=== PATIENT | male | born 1970 | race Caucasian/White ===

== ENCOUNTER 2017-02-03 13:47 | Observation (INO) ==
--- NOTE | 2017-02-03 14:55 | Emergency Department Note ---
Disposition Clinical Impression: UGI bleed Abdominal pain Qualifiers: Abdominal location: epigastric Qualified Code(s): R10.13 - Epigastric pain Disposition: Admitted As Inpatient Condition: Good Time of Disposition: 17:39 Abdominal Pain HPI - General Chief Complaint: ED Abdominal Pain Stated Complaint: Poss GI bleed Time Seen by Provider: 02/03/17 14:26 Source: patient Mode of arrival: ambulatory Limitations: no limitations Nursing Notes Reviewed: Yes Vital Signs Reviewed: Yes - History of Present Illness HPI Narrative: She presents to the emergency department with complaints of abdominal pain and emesis of coffee-ground material. He states that he got up in the night and had emesis at that time noticed it was dark coffee ground and in appearance. He states then he went back to bed was having some abdominal pain but not very much, this morning however he has had an additional 2 episodes of coffee-ground type emesis along with some black tarry stools. He family had has been on a prednisone Dosepak because of the left shoulder pain he has got small tear in his left shoulder is been treated for that. He has no other current history of GI bleed. He has had Li's esophageal otitis in the past but that was approximately 10 years ago. No history of bright red bleeding he rectally or emesis. He reports no fever he does complain of abdominal pain very tender mainly at the midepigastric soreness primary tenderness as. He is alert and oriented appears to be in no acute distress at this time. Onset (ago): hour(s) (12) Consistency: constant, Worsening Pain Severity: moderate Pain Scale: 5 Quality: cramping, sharp Radiation: LUQ, RUQ, epigastric Migration to: no migration Improves with: nothing Worsens with: nothing Associated symptoms: Reports: nausea, vomiting, diarrhea, hematemesis, hematochezia Treatments prior to arrival: none - Related Data Home Medications Medication Instructions Recorded Confirmed Cold Medication-Otc 06/09/15 06/09/15 Previous Rx's Medication Instructions Recorded Albuterol Sulfate [Albuterol 1 - 2 puff IH Q4HR PRN #1 06/09/15 Inhaler] [email or web address] Azithromycin [Zithromax] 250 mg PO DAILY #6 tablet 06/09/15 Promethazine/Codeine 5 ml PO TID #120 syrup 10/22/15 [Phenergan/Codeine] Azithromycin [Azithromycin 6-Tab 250 mg PO DAILY #6 tab 09/08/15 Pack] Joao/Poly/HC *EAR* SUSP 4 drop LEFT EAR QID #10 ml 09/08/15 [Cortisporin *EAR* SUSP] Allergies Allergy/AdvReac Type Severity Reaction Status Date / Time latex Allergy Hives Verified 06/09/15 11:56 Constitutional: Denies: fever, chills, weakness, weight change Eyes: Denies: eye pain, eye discharge, vision change ENT ED: Denies: ear pain, throat pain, dental pain, hearing loss, epistaxis, congestion, dysphagia Cardiovascular: Denies: chest pain, palpitations, dyspnea on exertion, edema, syncope Respiratory: Denies: cough, dyspnea, wheezes, hemoptysis, stridor Gastrointestinal: Reports: abdominal pain, nausea, vomiting, hematemesis, hematochezia Abdominal Pain PMH - Past Medical History Medical history: Reports: asthma Male Surgical History: Reports: appendectomy, orthopedic, other Psychiatric history: Reports: no psych history - Social History Smoking status: Unknown if ever smoked Alcohol use: Reports: none, occasionally Drug use: Reports: none Physical Exam - General Limitations: no limitations General appearance: alert, anxious - Head Head exam: atraumatic, normocephalic, normal inspection - Eye Eye exam: Present: normal appearance, PERRL, EOMI - ENT ENT exam: normal exam, normal oropharynx, mucous membranes moist - Neck Neck exam: Present: normal inspection, full ROM, trachea midline - Chest Chest inspection: Present: normal inspection, symmetric chest wall rise - Respiratory Respiratory exam: Present: normal lung sounds bilaterally - Cardiovascular Cardiovascular exam: Present: regular rate, normal rhythm, normal heart sounds - Abdominal Exam Abdominal exam: Present: tenderness, guarding, diminished bowel sounds Abdominal tenderness: Present: RUQ, LUQ, epigastrium - Extremities Exam Extremities exam: Present: normal inspection, full ROM. Absent: tenderness, pedal edema - Expanded Upper Extremity Exam Shoulder exam: Present: tenderness (left ). Absent: swelling, abrasion, ecchymosis, deformity, crepitus Arm exam: Present: normal inspection, full ROM Elbow exam: Present: normal inspection, full ROM Forearm/Wrist exam: Present: normal inspection, full ROM Hand exam: Present: normal inspection, full ROM Neuromotor exam: Normal: wrist extension, thumb opposition, thumb IP flexion, fingers 2-5 abduction Neurosensory exam: Normal: radial nerve, ulnar nerve, 2-point discrimination Hand tendon exam: Normal: flexor digitorum profundus (location), flexor digitorum superficialis (location), extensor tendon (location) Vascular exam: Normal: capillary refill, radial pulse - Expanded Lower Extremity Exam Hip/Pelvis exam: Present: normal inspection, full ROM Upper leg exam: Present: normal inspection, full ROM Knee exam: Present: normal inspection, full ROM Lower leg exam: Present: normal inspection, full ROM Ankle exam: Present: normal inspection, full ROM Foot/toe exam: Present: normal inspection, full ROM Neurovascular/Tendon exam: Absent: motor deficit, sensory deficit, tendon deficit - Back Exam Back exam: Present: normal inspection, full ROM. Absent: tenderness - Neurological Exam Neurological exam: Present: alert, oriented X3 - Psychiatric Psychiatric exam: Present: normal affect, normal mood - Skin Skin exam: Present: warm, dry, intact, normal color Course - Reevaluation(s) Reevaluation #1: discussed all results with patient and his . Will admit him to the hospital. He is in agreement. Time: 16:30 - Consultations Consultation #1: spoke with Dania Fischer the hospitalist who is admitting she accepted the patient for admission to the hospital. Time: 17:37 Vital Signs Temperature 98.3 F 02/03/17 13:48 Pulse Rate 105 02/03/17 13:48 Respiratory Rate 20 02/03/17 13:48 Blood Pressure 128/75 02/03/17 13:48 O2 Sat by Pulse Oximetry 98 02/03/17 13:48 Temperature 98.3 F 02/03/17 13:48 Pulse Rate 96 02/03/17 16:36 Respiratory Rate 20 02/03/17 16:36 Blood Pressure 116/69 02/03/17 16:36 O2 Sat by Pulse Oximetry 98 02/03/17 16:36 Oxygen Delivery Oxygen Delivery Room Air Abdominal Pain - Lab Data Result diagrams: 02/03/17 16:09 02/03/17 16:09 Lab Results 02/03/17 02/03/17 02/03/17 Range/Units 16:09 16:09 16:37 WBC 19.1 H (4.3-11.1) K/mcL RBC 5.04 (4.19-5.50) M/mcL Hgb 15.0 (12.9-16.9) g/dL Hct 43.8 (37.5-50.1) % MCV 86.9 (83.0-100.0) fL MCH 29.8 (28.0-33.3) pg MCHC 34.2 (31.6-35.5) g/dL RDW 13.2 (11.5-14.5) % Plt Count 226 (140-400) K/mcL MPV 9.7 (9.4-12.4) fL Immature Gran % 0.9 (0-4) % Seg Neutrophils % 72.8 % Lymphocytes % 18.1 % Monocytes % 8.0 % Eosinophils % 0.1 % Basophils % 0.1 % Neutrophils # 13.9 H (1.6-8.9) K/mcL Lymphocytes # 3.5 (0.6-4.6) K/mcL Monocytes # 1.5 H (0.0-1.3) K/mcL Eosinophils # 0.0 (0.0-0.6) K/mcL Basophils # 0.0 (0.0-0.2) K/mcL Sodium 140 (136-145) mEq/L Potassium 4.3 (3.5-4.5) mEq/L Chloride 103 (98-109) mEq/L Carbon Dioxide 28 (19-29) mEq/L BUN 43 H (8-26) mg/dL Creatinine 1.27 H (0.72-1.25) mg/dL Est GFR ( Amer) > 60 (> 60) Est GFR (Non-Af Amer) > 60 (> 60) BUN/Creatinine Ratio 34 H (6-26) Glucose 108 H (70-99) mg/dL Calculated Osmolality 301 H (280-300) Calcium 9.2 (8.6-10.8) mg/dL Total Bilirubin 0.9 (0.2-1.2) mg/dL Direct Bilirubin 0.3 (0.0-0.5) mg/dL Indirect Bilirubin 0.6 (0.0-1.2) mg/dL AST 21 (5-34) Units/L ALT 35 (0-55) Units/L Alkaline Phosphatase 43 (38-126) Units/L Serum Total Protein 6.6 (6.0-8.3) g/dL Albumin 3.7 (3.5-5.0) g/dL Globulin 2.9 (2.4-3.5) g/dL Albumin/Globulin Ratio 1.3 (1.1-2.2) Amylase 35 (25-125) Units/L Lipase 16 (8-78) Units/L Stool Occult Blood Positive A (Negative) Attestation Statement - Attestation Attestation: For this encounter, I have reviewed the [employer] REPAIRER or PA documentation, treatment plan, and medical decision making; and I have had face to face time with this patient. 46-year-old who developed coffee-ground emesis last day or so and then developed dark tarry stools. Physical examination he's got some mild tenderness across the abdomen without guarding or rebound. Stool guaiac was positive. He will be admitted for further evaluation treatment.
[2017-02-03] MEDS ORDERED: *HR* Promethazine 25 MG/ML VIAL IVP ONE (14:58)
[2017-02-03] MEDS ORDERED: Ketorolac 30 MG/ML VIAL IVP ONE (14:58)
[2017-02-03] MEDS ORDERED: 0.9 % Sodium Chloride 1,000 ML IVC ONE (14:58)
[2017-02-03 16:15] LABS: Basophils % 0.1 %; Eosinophils % 0.1 %; Hematocrit 43.8 % (37.5-50.1); Immature Granulocytes % 0.9 % (0-4); Lymphocytes # 3.5 K/mcL (0.6-4.6); Lymphocytes % 18.1 %; Mean Corpuscular HGB Conc 34.2 g/dL (31.6-35.5); Mean Corpuscular Hemoglobin 29.8 pg (28.0-33.3); Mean Corpuscular Volume 86.9 fL (83.0-100.0); Mean Platelet Volume 9.7 fL (9.4-12.4); Monocytes # 1.5 K/mcL (0.0-1.3); Neutrophils # 13.9 K/mcL (1.6-8.9); Platelet Count 226 K/mcL (140-400); Red Blood Count 5.04 M/mcL (4.19-5.50); Red Cell Distribution Width 13.2 % (11.5-14.5); Segmented Neutrophils % 72.8 %
[2017-02-03 16:46] LABS: Alanine Aminotransferase 35 Units/L (0-55); Albumin 3.7 g/dL (3.5-5.0); Albumin/Globulin Ratio 1.3 (1.1-2.2); Alkaline Phosphatase 43 Units/L (38-126); Amylase 35 Units/L (25-125); Aspartate Amino Transferase 21 Units/L (5-34); BUN/Creatinine Ratio 34 (6-26); Bilirubin,Direct 0.3 mg/dL (0.0-0.5); Bilirubin,Indirect 0.6 mg/dL (0.0-1.2); Bilirubin,Total 0.9 mg/dL (0.2-1.2); Blood Urea Nitrogen 43 mg/dL (8-26); Calcium 9.2 mg/dL (8.6-10.8); Carbon Dioxide 28 mEq/L (19-29); Chloride 103 mEq/L (98-109); Globulin 2.9 g/dL (2.4-3.5); Glucose 108 mg/dL (70-99); Lipase 16 Units/L (8-78); Osmolality,Calculated 301 (280-300); Potassium 4.3 mEq/L (3.5-4.5); Sodium 140 mEq/L (136-145); Total Protein 6.6 g/dL (6.0-8.3); eGFR For African Americans > 60 (> 60); eGFR For Non-African Americans > 60 (> 60)
[2017-02-03] MEDS ORDERED: Pantoprazole 40 MG VIAL IVP ONE (19:53)
[2017-02-03 21:18] LABS: Bilirubin,Urine Negative (Negative); Blood,Urine Small (Negative); Clarity,Urine Clear (Clear); Color,Urine Dark Yellow (Yellow); Glucose,Urine (UA) Normal (Normal); Ketones,Urine Trace mg/dL (Negative); Leukocyte Esterase,Urine Negative (Negative); Nitrite,Urine Negative (Negative); PH,Urine 5.5 pH Units (5.0-8.0); Protein,Urine Negative (Neg-Trace); Specific Gravity,Urine > 1.030 (1.010-1.025); Urobilinogen,Urine Normal (Normal)
[2017-02-03 21:20] LABS: Bacteria,Urine None Seen per hpf (None-Few); Hyaline Casts,Urine None Seen per lpf (None-Few); Squamous Epithelial Cell,Urine Few per lpf (None-Few); WBC,Urine 0-3 per hpf (0-3)
[2017-02-03] MEDS: Pantoprazole 40 MG in 0.9 % Sodium Chloride Mini Bag 100 ML IVC SCH (22:09)
--- NOTE | 2017-02-03 22:39 | Internal Med History&Physical ---
Date of Encounter: 02/03/17 Time of Encounter: 22:35 Assessment and Plan (1) UGI bleed Current visit: Yes Status: Acute Suspected upper G.I. bleed. We will start photonic strip. He will need EGD and so gastroenterology will be consulted. Follow H&H Q6 hours. Initial Hb is 15. He had several dark bowel movements. I will also check stool studies for culture white blood cells, ova and parasites. (2) JEANNIE (acute kidney injury) Current visit: Yes Status: Acute There is no baseline kidney functions. Will hydrate and follow kidney functions in the morning. He denies taking nonsteroidal anti-inflammatory drugs except very rarely. (3) Leukocytosis Current visit: Yes Status: Acute Suspect that this is related to steroids. May also be reactive if he is having G.I. bleeding. 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 Since yesterday night patient had several episodes of coffee ground emesis about 5 episodes. He denies any fresh blood in the vomitus. He has been complaining of epigastric pain and nausea. He also noticed black tarry stools. He has been on prednisone for left shoulder muscle injury. He very rarely takes nonsteroidal anti-inflammatory drugs, last was a month ago. He denies being on any antiplatelet or anticoagulant medications. He has history of good status post Oleg fundoplication. He also has history of Li's esophagus. He has been following up with endoscopy every 6 month Last scope was many years ago. Hemoglobin on arrival to the ER was 15. He denies any fevers or chills. No sick contacts or recent travel. Past Med Surg Social Fam HX - Past Medical History Medical history: asthma Psychiatric history: no psych history - Past Surgical History Surgical History: other (two (2) sinus surgeries) - Social History Smoking Status: Unknown if ever smoked Smokeless Tobacco Status: Yes Alcohol use: none, occasionally Drug use: none Internal Medicine - H&P: Meds Albuterol Sulfate [Albuterol Inhaler] 1 - 2 puff IH Q4HR PRN #1 hfa.aer.ad 10/22 /15 [Rx] Azithromycin [Zithromax] 250 mg PO DAILY #6 tablet 06/09/15 [Rx] Cold Medication-Otc 06/09/15 [History] Promethazine/Codeine [Phenergan/Codeine] 5 ml PO TID #120 syrup 06/09/15 [Rx] Azithromycin [Azithromycin 6-Tab Pack] 250 mg PO DAILY #6 tab 09/08/15 [Rx] Joao/Poly/HC *EAR* SUSP [Cortisporin *EAR* SUSP] 4 drop LEFT EAR QID #10 ml 09/08 [Rx] Allergies latex Allergy (Verified 06/09/15 11:56) Hives All Systems PM: A 10-system review of systems was performed and is negative for pertinent findings except as documented above in the HPI. Review of systems: 10 point review of systems is negative except for HPI - Constitutional Vitals: Temp Pulse Resp BP Pulse Ox 98.1 F 98 14 127/85 97 02/03/17 18:50 02/03/17 18:50 02/03/17 18:50 02/03/17 18:50 02/03/17 18:50 Exam: Gen.: patient is alert oriented times 3 cardiac: normal S1 S2 no additional sounds or murmurs chest: no active wheezing or bronchial breathing abdomen Tenderness in epigastric area lower extremity no swelling. Neuro: no new focal deficits Internal Med - H&P Results - Labs CBC & Chem 7: 02/03/17 16:09 02/03/17 16:09 Labs: Urine 02/03/17 Range/Units 21:14 Urine Color Dark Yellow (Yellow) Urine Clarity Clear (Clear) Urine pH 5.5 (5.0-8.0) pH Units Ur Specific [place] > 1.030 H (1.010-1.025) Urine Protein Negative (Neg-Trace) mg/dL Urine Glucose (UA) Normal (Normal) mg/dL
[2017-02-03] MEDS: 0.9 % Sodium Chloride 1,000 ML IVC SCH (23:20)
[2017-02-04 00:02] LABS: Hematocrit 34.8 % (37.5-50.1)
[2017-02-04] MEDS: Pantoprazole 40 MG in 0.9 % Sodium Chloride Mini Bag 100 ML IVC SCH ×3 (02:46→16:21)
[2017-02-04 05:09] LABS: Basophils # 0.1 K/mcL (0.0-0.2); Basophils % 0.4 %; Eosinophils # 0.2 K/mcL (0.0-0.6); Hematocrit 33.1 % (37.5-50.1); Hemoglobin 11.3 g/dL (12.9-16.9); Immature Granulocytes % 0.7 % (0-4); Lymphocytes # 4.2 K/mcL (0.6-4.6); Lymphocytes % 27.7 %; Mean Corpuscular HGB Conc 34.1 g/dL (31.6-35.5); Mean Corpuscular Hemoglobin 29.7 pg (28.0-33.3); Mean Corpuscular Volume 87.1 fL (83.0-100.0); Mean Platelet Volume 9.9 fL (9.4-12.4); Monocytes % 6.7 %; Neutrophils # 9.6 K/mcL (1.6-8.9); Nucleated Red Blood Cells 0.1 /100 WBC (0); Platelet Count 186 K/mcL (140-400); Red Cell Distribution Width 13.2 % (11.5-14.5); Segmented Neutrophils % 63.5 %
[2017-02-04 05:22] LABS: BUN/Creatinine Ratio 44 (6-26); Blood Urea Nitrogen 50 mg/dL (8-26); Carbon Dioxide 26 mEq/L (19-29); Chloride 107 mEq/L (98-109); Glucose 111 mg/dL (70-99); Magnesium 1.9 mg/dL (1.6-2.6); Osmolality,Calculated 304 (280-300); Potassium 3.7 mEq/L (3.5-4.5); Sodium 140 mEq/L (136-145); eGFR For African Americans > 60 (> 60); eGFR For Non-African Americans > 60 (> 60)
[2017-02-04] MEDS: 0.9 % Sodium Chloride 1,000 ML IVC SCH ×2 (09:21→20:46)
[2017-02-04] MEDS ORDERED: *HR* Midazolam HCl 5 MG/5 ML VIAL IVP ONE (10:43)
[2017-02-04] MEDS ORDERED: *HR* FentaNYL (PF) 100 MCG/2 ML VIAL ONE (10:44)
[2017-02-04] MEDS: *HR* FentaNYL (PF) 100 MCG/2 ML VIAL IVP PRN ×3 (11:00→11:04)
[2017-02-04] MEDS: *HR* Midazolam HCl 5 MG/5 ML VIAL IVP PRN ×3 (11:00→11:04)
[2017-02-04] MEDS ORDERED: Simethicone 40 MG/0.6 ML MLS IR ONE (11:02)
[2017-02-04] MEDS ORDERED: Tetracaine/Benzocaine/Butamben 200MG/SPRAY (100SPY/BOT) MM ONE (11:02)
--- NOTE | 2017-02-04 11:02 | Pre-Sedation Evaluation ---
Pre-sedation evaluation - Pre-sedation checklist Date of procedure: 02/04/17 Procedure: EGD Recent Vitals: Last Vital Signs Temp 98.1 F 02/04/17 10:54 Pulse 81 02/04/17 11:00 Resp 20 02/04/17 11:00 BP 130/73 02/04/17 11:00 Pulse Ox 98 02/04/17 11:00 H&P (including ROS) documented in medical record: Yes Dietary Status: NPO after Midnight Dentition: No loose teeth or bridges ASA Classification *see protocol: CLASS II-Mild systemic disease Plan of Care: Pt appropriate candidate for procedure/moderate/conscious sedation , Risks/benefits of procedure/sedation discussed w/ patient/family
[2017-02-04] MEDS ORDERED: SODIUM CHLORIDE/NAHCO3/KCL/PEG 4,000 ML SOLN.RECON PO ONE (11:15)
--- NOTE | 2017-02-04 11:37 | Gastroenterology Consult Note ---
<Bart De La Vega - Last Filed: 02/04/17 11:32> Date of Encounter: 02/04/17 Time of Encounter: 10:30 - Assessment and plan (1) UGI bleed Current Visit: Yes Status: Acute Assessment and plan: Continue PPI drip. Plan for EGD today to r/o esophagitis, gastritis, duodenitis , PUD, MW tear, or AVM. (2) Low hemoglobin Current Visit: Yes Status: Acute Assessment and plan: Secondary to upper GI bleeding. Continue to monitor CBC and transfuse PRBC as needed. (3) Abdominal pain Current Visit: Yes Status: Acute Assessment and plan: Improved. Continue PPI drip and complete EGD today. Qualifiers: Abdominal location: epigastric Qualified Code(s): R10.13 - Epigastric pain - Time Spent With Patient Total time spent is greater than 50% in coordination of care (as documented) at patient's floor/unit and/or counseling patient: GI History of Present Illness - Data of Consult Patient: new to practice Consult date: 02/04/17 Requesting Physician: Eitan Lieberman MD - Consult Narrative Reason for consult: Upper GI bleed History of present illness: Mr. Salcedo is a 46 year old male with PMHx of asthma, Li's esophagus, s/ p Oleg fundoplication who presented to the ED with 5 episodes of coffee- ground emesis that started the night before admission. He denies any hematemesis. He also reports epigastric pain, nausea, and melena. He has been on Prednisone recently for left shoulder muscle injury. He denies anticoagulation or antiplatelet medication. Hgb on admission was 15 and this AM 11.3. He denies fever, chills, chest pain, or hematochezia. Procedures: EGD 10/27/2007 Dr. Wolfe: chronic esophagitis. EGD 01/18/2005 Dr. Shelton: Reflux esophagitis, no Li's. EGD 05/29/2004 Dr. Shelton: Li's esophagus, no dysplasia. NSAIDs: None Anticoagulation: None Past Med Surg Social Fam HX - Past Medical History Medical history: asthma Psychiatric history: no psych history - Past Surgical History Surgical History: other (two (2) sinus surgeries) - Social History Smoking Status: Unknown if ever smoked Smokeless Tobacco Status: Yes Alcohol use: none, occasionally Drug use: none - Gastrointestinal Gastrointestinal: Present: as per HPI - Constitutional Constitutional: as per HPI - EENT Eyes: as per HPI Ears: Present: as per HPI Nose, mouth and throat: Present: as per HPI - Cardiovascular Cardiovascular ROS: Present: as per HPI - Respiratory Respiratory IM: Present: as per HPI - Genitourinary Genitourinary: Absent: change in color, Urinary frequency - Neurological ROS Neurological GI: Present: as per HPI - Hematologic/Lymphatic Hematologic/Lymphatic pediatric: Present: as per HPI - Musculoskeletal Musculoskeletal ROS GI: Present: as per HPI - Integumentary Integumentary GI: Present: as per HPI - Psychiatric ROS Psychiatric GI: Present: as per HPI - Endocrine Endocrine IM: Present: as per HPI - Constitutional Vitals: Temp Pulse Resp BP Pulse Ox 98.2 F 77 14 104/62 95 02/04/17 11:30 02/04/17 11:30 02/04/17 11:30 02/04/17 11:30 02/04/17 11:30 General appearance: Present: cooperative, A&O X 3, no acute distress, answers questions appropriately - Head Head exam: Present: atraumatic, normocephalic - Eye Eye exam: Present: normal appearance, sclera anicteric - ENT ENT exam: Present: mucous membranes dry - Neck Neck exam general surgery: Present: normal inspection, trachea midline - Respiratory Respiratory exam: Present: CTAB. Absent: rales, rhonchi - Cardiovascular Cardiovascular exam: Present: RRR, +S1, +S2 - GI/Abdominal GI/Abdominal exam: Present: soft, no peritoneal signs. Absent: distended, firm , guarding, tenderness - Rectal Rectal exam: Present: deferred - Extremities Exam Extremities exam: Present: warm - Neurological Exam Neurological exam: Present: no focal deficits - Psychiatric Psychiatric exam: Present: normal affect, normal mood - Skin Skin exam: Present: dry, intact, normal color, warm Results - Labs CBC & Chem 7: 02/04/17 04:29 02/04/17 04:29 Labs: Last Result Calcium 8.0 mg/dL (8.6-10.8) L 02/04/17 04:29 Stool Occult Blood Positive (Negative) A 02/03/17 16:37 Entire Visit Hgb 11.3 g/dL (12.9-16.9) L 02/04/17 04:29 Hct 33.1 % (37.5-50.1) L 02/04/17 04:29 Total Bilirubin 0.9 mg/dL (0.2-1.2) 02/03/17 16:09 AST 21 Units/L (5-34) 02/03/17 16:09 ALT 35 Units/L (0-55) 02/03/17 16:09 Amylase 35 Units/L (25-125) 02/03/17 16:09 Lipase 16 Units/L (8-78) 02/03/17 16:09 Consult Discharge Plan - Plan Referrals: Daly Orellana, FRAME [employer]ER [Primary Care Provider] - <Irma Calderon - Last Filed: 02/04/17 13:18> Date of Encounter: 02/04/17 - Time Spent With Patient Total time spent is greater than 50% in coordination of care (as documented) at patient's floor/unit and/or counseling patient: GI History of Present Illness - Data of Consult Requesting Physician: Eitan Lieberman MD - Consult Narrative History of present illness: Mr. Salcedo is a 46 year old male - Constitutional Vitals: Temp Pulse Resp BP Pulse Ox 97.5 F L 76 14 101/62 98 02/04/17 12:18 02/04/17 12:18 02/04/17 12:18 02/04/17 12:18 02/04/17 12:18 Results - Labs CBC & Chem 7: 02/04/17 04:29 02/04/17 04:29 Labs: Last Result Calcium 8.0 mg/dL (8.6-10.8) L 02/04/17 04:29 Stool Occult Blood Positive (Negative) A 02/03/17 16:37 Entire Visit Hgb 11.3 g/dL (12.9-16.9) L 02/04/17 04:29 Hct 33.1 % (37.5-50.1) L 02/04/17 04:29 Total Bilirubin 0.9 mg/dL (0.2-1.2) 02/03/17 16:09 AST 21 Units/L (5-34) 02/03/17 16:09 ALT 35 Units/L (0-55) 02/03/17 16:09 Amylase 35 Units/L (25-125) 02/03/17 16:09 Lipase 16 Units/L (8-78) 02/03/17 16:09 - Attending Attestation I examined this patient and my medical decision-making was reviewed with the PIZZA DRIVER/PA/Advanced Practice Nurse/Resident Physician. I agree with the documented findings, disposition and treatment plan as described except to the extent set forth below.
--- NOTE | 2017-02-04 15:56 | Internal Med Progress Note ---
Date of Encounter: 02/04/17 Time of Encounter: 15:55 - Assessment and plan (1) UGI bleed Current Visit: Yes Status: Acute (2) Abdominal pain Current Visit: Yes Status: Acute Qualifiers: Abdominal location: epigastric Qualified Code(s): R10.13 - Epigastric pain (3) JEANNIE (acute kidney injury) Current Visit: Yes Status: Acute (4) Leukocytosis Current Visit: Yes Status: Acute Qualifiers: Qualified Code(s): D72.829 - Elevated white blood cell count, unspecified (5) Low hemoglobin Current Visit: Yes Status: Acute - Subjective Interval history: Mr. Salcedo is a 46 year old male with PMHx of asthma, Li's esophagus, s/ p Oleg fundoplication who presented to the ED with 5 episodes of coffee- ground emesis that started the night before admission. Gastroenterology was consulted and he will have an EGD today. His hemoglobin dropped from 15-11 this morning. - Constitutional Vitals: Temp Pulse Resp BP Pulse Ox 97.9 F 90 18 121/68 95 02/04/17 15:18 02/04/17 15:18 02/04/17 15:18 02/04/17 15:18 02/04/17 15:18 - Head Head exam: Present: atraumatic, normocephalic - Eye Eye exam: Present: PERRL, conjuntiva pink, sclera anicteric Pupils: Present: PERRL - Neck Neck exam general surgery: Present: supple, trachea midline. Absent: lymphadenopathy - Respiratory Respiratory exam: Present: CTAB. Absent: accessory muscle use, rales, rhonchi, wheezes - Cardiovascular Cardiovascular exam: Present: RRR, +S1, +S2. Absent: diastolic murmur, gallop, rubs, systolic murmur - GI/Abdominal GI/Abdominal exam: Present: normal bowel sounds, soft, no peritoneal signs. Absent: distended, tenderness - Extremities Exam Extremities exam: Present: warm, radial pulses palpable and symetrical. Absent : calf tenderness, cyanotic, pedal edema - Neurological Exam Neurological exam: Present: CN II-XII intact, oriented X3, no focal deficits. Absent: pronater drift, facial droop, speech deficit - Skin Skin exam: Present: dry, intact Internal Medicine: Result - Labs CBC & Chem 7: 02/04/17 04:29 02/04/17 04:29 Labs: Short CBC 02/03/17 02/04/17 Range/Units 23:44 04:29 WBC 15.2 H (4.3-11.1) K/mcL Hgb 12.0 L D 11.3 L (12.9-16.9) g/dL Hct 34.8 L 33.1 L (37.5-50.1) % Plt Count 186 (140-400) K/mcL Neutrophils # 9.6 H (1.6-8.9) K/mcL BMP 02/04/17 04:29 Sodium 140 Potassium 3.7 Chloride 107 Carbon Dioxide 26 BUN 50 H Creatinine 1.13 Glucose 111 H Calcium 8.0 L Urine 02/03/17 Range/Units 21:14 Urine Color Dark Yellow (Yellow) Urine Clarity Clear (Clear) Urine pH 5.5 (5.0-8.0) pH Units Ur Specific [place] > 1.030 H (1.010-1.025) Urine Protein Negative (Neg-Trace) mg/dL Urine Glucose (UA) Normal (Normal) mg/dL Consult Discharge Plan - Plan Referrals: Daly Orellana, [employer] [Primary Care Provider] -
[2017-02-05] MEDS: Pantoprazole 40 MG in 0.9 % Sodium Chloride Mini Bag 100 ML IVC SCH (01:56)
[2017-02-05] MEDS ORDERED: *HR* Midazolam HCl 5 MG/5 ML VIAL IVP ONE (07:27)
[2017-02-05] MEDS ORDERED: *HR* FentaNYL (PF) 100 MCG/2 ML VIAL ONE (07:27)
[2017-02-05] MEDS ORDERED: Simethicone 40 MG/0.6 ML MLS IR ONE ×2 (07:41→08:22)
[2017-02-05] MEDS ORDERED: 0.9 % Sodium Chloride 500 ML IVC SCH (07:45)
[2017-02-05] MEDS: *HR* FentaNYL (PF) 100 MCG/2 ML VIAL IVP PRN ×3 (08:21→08:27)
[2017-02-05] MEDS: *HR* Midazolam HCl 5 MG/5 ML VIAL IVP PRN ×3 (08:22→08:27)
[2017-02-05] MEDS ORDERED: *HR* FentaNYL (PF) 100 MCG/2 ML VIAL IVP PRN (08:22)
[2017-02-05] MEDS ORDERED: *HR* Midazolam HCl 5 MG/5 ML VIAL IVP PRN (08:22)
[2017-02-05 12:16] LABS: Basophils % 0.4 %; Eosinophils # 0.2 K/mcL (0.0-0.6); Eosinophils % 2.3 %; Hematocrit 26.5 % (37.5-50.1); Immature Granulocytes % 1.2 % (0-4); Lymphocytes # 2.3 K/mcL (0.6-4.6); Mean Corpuscular HGB Conc 35.1 g/dL (31.6-35.5); Mean Corpuscular Hemoglobin 30.4 pg (28.0-33.3); Mean Corpuscular Volume 86.6 fL (83.0-100.0); Mean Platelet Volume 9.5 fL (9.4-12.4); Monocytes # 0.7 K/mcL (0.0-1.3); Monocytes % 8.5 %; Neutrophils # 4.9 K/mcL (1.6-8.9); Nucleated Red Blood Cells 0.6 /100 WBC (0); Platelet Count 131 K/mcL (140-400); Red Blood Count 3.06 M/mcL (4.19-5.50); Red Cell Distribution Width 13.2 % (11.5-14.5); Segmented Neutrophils % 59.6 %
[2017-02-05 12:17] LABS: Hemoglobin 9.3 g/dL (12.9-16.9)
[2017-02-05] MEDS: 0.9 % Sodium Chloride 1,000 ML IVC SCH (12:17)
--- NOTE | 2017-02-05 15:22 | Discharge Summary ---
Date of Encounter: 02/05/17 Time of Encounter: 15:19 - Discharge Diagnosis (1) UGI bleed Priority: Primary Status: Acute (2) Abdominal pain Priority: Secondary Status: Acute Qualifiers: Abdominal location: epigastric Qualified Code(s): R10.13 - Epigastric pain (3) JEANNIE (acute kidney injury) Priority: Secondary Status: Acute (4) Leukocytosis Priority: Secondary Status: Acute Qualifiers: Leukocytosis type: unspecified Qualified Code(s): D72.829 - Elevated white blood cell count, unspecified (5) Low hemoglobin Priority: Secondary Status: Acute - Discharge Medications Prescriptions: Pantoprazole Sodium [Protonix] 40 mg PO DAILY #30 tablet. Home Medications: Albuterol Sulfate [Albuterol Inhaler] 1 - 2 puff IH Q4HR PRN #1 [id number] 06/09 [Rx] Cholecalciferol (D-3) [Vitamin D] 5,000 unit PO DAILY 02/04/17 [History] Multivitamin [Multi-Day Vitamins] 1 tab PO DAILY 02/04/17 [History] Propranolol LA (24 HR) [Inderal LA] 60 mg PO DAILY 02/04/17 [History] Zolpidem Tartrate [Ambien Cr] 12.5 mg PO HS PRN 02/04/17 [History] Pantoprazole Sodium [Protonix] 40 mg PO DAILY #30 tablet. 02/05/17 [Rx] Allergies/Adverse Reactions: Allergies latex Allergy (Verified 06/09/15 11:56) Hives Date of admission: 02/03/17 17:45 Primary care physician: Daly Orellana CNP Consults: 02/03/17 22:33 Consult to Gastroenterology [CONS] Routine Consulting Provider: Gastroenterology [facility] Reason for Consult: Upper GI bleed? Call Completed: No Discharging clinician: Eitan Lieberman Anticipated date of discharge: 02/05/17 - Patient Status Disposition: Home, Self-Care Overall status at discharge: patient is back to baseline - Discharge Instructions Follow Up With: Daly Orellana CNP [Primary Care Provider] - - Diet and Activity Activity: resume usual activities as tolerated Diet: advance to your usual diet Interval History: Mr. Salcedo is a 46 year old male with PMHx of asthma, Li's esophagus, s/ p Oleg fundoplication who presented to the ED with 5 episodes of coffee- ground emesis that started the night before admission. Gastroenterology was consulted and he had EGD and colonoscopy today. His hemoglobin dropped from 15- 9 . On EGD esophagitis and gastritis noticed on colonoscopy only dark stools noticed but no active bleeding. Gastroenterology has recommended Protonix and follow up in office. Patient to creatinine was elevated on admission but with IV hydration came down to normal. Hospital course: Mr. Salcedo is a 46 year old male - Time Spent with Patient Total time spent providing and/or coordinating discharge services: Greater than 30 minutes - Constitutional Vitals: Temp Pulse Resp BP Pulse Ox 98.4 F 93 15 126/70 100 02/05/17 11:48 02/05/17 11:48 02/05/17 11:48 02/05/17 11:48 02/05/17 11:48 - Head Head exam: Present: atraumatic, normocephalic - Eye Eye exam: Present: PERRL, conjuntiva pink, sclera anicteric Pupils: Present: PERRL - Neck Neck exam general surgery: Present: supple, trachea midline. Absent: lymphadenopathy - Respiratory Respiratory exam: Present: CTAB. Absent: accessory muscle use, rales, rhonchi, wheezes - Cardiovascular Cardiovascular exam: Present: RRR, +S1, +S2. Absent: diastolic murmur, gallop, rubs, systolic murmur - GI/Abdominal GI/Abdominal exam: Present: normal bowel sounds, soft, no peritoneal signs. Absent: distended, tenderness - Extremities Exam Extremities exam: Present: warm, radial pulses palpable and symetrical. Absent : calf tenderness, cyanotic, pedal edema - Neurological Exam Neurological exam: Present: CN II-XII intact, oriented X3, no focal deficits. Absent: pronater drift, facial droop, speech deficit - Skin Skin exam: Present: dry, intact
[2017-02-05 15:40] VITALS: BP 96/62
== END 2017-02-05 16:16 | disposition home or self-care (01) ==
LOC: EMEROO 13:47 → 3ANU 13:47
PROVIDERS: ADMIT Hospitalist; ATTEND Internal Medicine
PROC: ENDOEBX (2017-02-04 10:30)